=== PATIENT | male | born 1995 | race Caucasian/White ===

== ENCOUNTER 2017-11-30 06:50 | Emergency (ER) | payer BC ==
--- NOTE | 2017-11-30 07:22 | ED ---
Headache - HPI Summary HPI Summary: The pt is a 22 y/o male presenting to [facility] c/o a headache since yesterday. He notes nausea, one episode of emesis, palpitations and neck pain but denies photophobia, nasal congestion, fever, and cough. The throbbing HILL is rated 8/10 in severity is aggravated by walking and movement and alleviated by resting. The pt took Ibuprofen to no relief.The pt denies a hx of headaches. 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 Onset/Duration: Sudden Onset, Started days ago - 1 day, Still Present Currently Pain Is: Current Pain Scale(0-10)= - 8, Severe Timing: Constant Character: Throbbing Location of Headache: Diffuse Aggravating Factor: Exertion, Other - Walking Allevating Factors: Rest Associated Signs And Symptoms: Nausea, Vomiting, Neck Pain - Allergies/Home Medications Allergies/Adverse Reactions: Allergies Allergy/AdvReac Type Severity Reaction Status Date / Time No Known Allergies Allergy Verified 11/30/17 06:55 Home Medications: Home Medications NK [No Home Medications Reported] 11/30/17 [History Confirmed 11/30/17] PMH/Surg Hx/FS Hx/Imm Hx Previously Healthy: Yes Endocrine/Hematology History: Denies: Hx Diabetes Cardiovascular History: Denies: Hx Hypercholesterolemia, Hx Hypertension Respiratory History: Denies: Hx Asthma Sensory History: Denies: Hx Deafness - Cancer History Cancer Type, Location and Year: None reported - Surgical History Surgery Procedure, Year, and Place: None reported Infectious Disease History: No Infectious Disease History: Denies: Traveled Outside the [place] in Last 30 Days - Family History Known Family History: Positive: Hypertension - Father , Respiratory Disease - Asthma- father Negative: Diabetes - Social History Occupation: Student Lives: With Family Hx Substance Use: No Review of Systems Negative: Fever Negative: Photophobia ENT: Negative - Nasal congestion Positive: Other - Positive: Neck pain Negative: Cough Positive: Vomiting, Nausea Positive: Headache All Other Systems Reviewed And Are Negative: Yes Physical Exam - Summary Physical Exam Summary: Appearance: The patient is well-nourished in no acute distress and in no acute pain. Skin: The skin is warm and dry and skin color reflects adequate perfusion. HEENT: The head is normocephalic and atraumatic. The pupils are equal and reactive. The conjunctivae are clear and without drainage. Nares are patent and without drainage. Mouth reveals moist mucous membranes and the throat is without erythema and exudate. The external ears are intact. The ear canals are patent and without drainage. The tympanic membranes are intact. Neck: The neck is supple with full range of motion and non-tender. There are no carotid bruits. There is no neck vein distension. Respiratory: Chest is non-tender. Lungs are clear to auscultation and breath sounds are symmetrical and equal. Cardiovascular: Heart is regular rate and rhythm. There is no murmur or rub auscultated. There is no peripheral edema and pulses are symmetrical and equal. Abdomen: The abdomen is soft and non-tender. There are normal bowel sounds heard in all four quadrants and there is no organomegaly palpated. Musculoskeletal: There is no back tenderness noted. Extremities are non-tender with full range of motion. There is good capillary refill. There is no peripheral edema or calf tenderness elicited. Neurological: Patient is alert and oriented to person, place and time. The patient has symmetrical motor strength in all four extremities. Cranial nerves are grossly intact. Deep tendon reflexes are symmetrical and equal in all four extremities. Psychiatric: The patient has an appropriate affect and does not exhibit any anxiety or depression. Triage Information Reviewed: Yes Vital Signs On Initial Exam: Initial Vitals Temp Pulse Resp BP Pulse Ox 97.5 F 52 16 150/71 98 11/30/17 06:53 11/30/17 06:53 11/30/17 06:53 11/30/17 06:53 11/30/17 06:53 Vital Signs Reviewed: Yes Diagnostics - Vital Signs Vital Signs Temp Pulse Resp BP Pulse Ox 11/30/17 06:53 97.5 F 52 16 150/71 98 - Laboratory Result Diagrams: 11/30/17 07:40 11/30/17 07:40 Lab Statement: Any lab studies that have been ordered have been reviewed, and results considered in the medical decision making process. Headache Course/Dx - Course Course Of Treatment: Mr. Chávez presented to the emergency department with about a day of a global headache. He denies any photophobia but he does have some nausea. He's been working out lately and his neck is also a little sore on the left which she attributes to the working out. He is mildly tender in his neck and is nontoxic in appearance with normal vital signs. There is no meningeal sign. He had no leukocytosis, he was not febrile and he had a very slight CRP elevation. He was given a "migraine cocktail" of Reglan, Toradol, Benadryl and normal saline and felt much improved with his headache gone. I think this is a tension headache and recommended symptomatic treatment. - Diagnoses Provider Diagnoses: Tension headache Discharge - Sign-Out/Discharge Documenting (check all that apply): Patient Departure - DC - Discharge Plan Condition: Stable Disposition: HOME Patient Education Materials: Tension Headache (ED) Referrals: Cedric VALDOVINOS,Semaj Rodriguez [Primary Care Provider] - 2 Days Additional Instructions: Return to ED for any new or worsening symptoms - Billing Disposition and Condition Condition: STABLE Disposition: Home - Attestation Statements Document Initiated by Dariusibe: Yes Documenting Scribe: Marilee Stover Provider For Whom Scribe is Documenting (Include Credential): Dr. Kp Lee MD Scribe Attestation: Marilee Nunez scribed for Dr. Kp Lee MD on 11/30/17 at 1507. Scribe Documentation Reviewed: Yes Provider Attestation: The documentation as recorded by the Marilee randolph accurately reflects the service I personally performed and the decisions made by me, Dr. Kp Lee MD
[2017-11-30] MEDS ORDERED: diPHENhydraMINE PO* 50 MG PO ONE (07:23)
[2017-11-30] MEDS ORDERED: Ketorolac INJ* 30 MG/ML 1 ML VIAL IV PUSH ONE (07:23)
[2017-11-30] MEDS ORDERED: Metoclopramide IV* 5 MG/ML 2 ML VIAL IV ONE (07:23)
[2017-11-30] MEDS ORDERED: NS 0.9% 1000 ML* 1,000 ML IV ONE (07:23)
[2017-11-30 08:08] LABS: EGFR Non-African American 84.5 (>60)
[2017-11-30 08:09] LABS: ABS Basophils 0.1 10^3/ul (0-0.2); ABS Eosinophils 0.1 10^3/ul (0-0.6); ABS Lymphocytes 1.4 10^3/ul (1.0-4.8); ABS Neutrophils 6.7 10^3/ul (1.5-7.7); ABS Nucleated RBC 0 10^3/ul; Hematocrit 43 % (42-52); Hemoglobin 14.8 g/dl (14.0-18.0); Lymphocyte % 15.1 % (25-47); Mean Corpuscular HGB Conc 35 g/dl (31-36); Mean Corpuscular Hemoglobin 28 pg (27-31); Mean Corpuscular Volume 81 fL (80-94); Mean Platelet Volume 8.4 um3 (7.4-10.4); Nucleated Red Blood Cells % 0.2; Platelet Count 173 10^3/ul (150-450); Red Blood Count 5.34 10^6/ul (4.00-5.40); Red Cell Distribution Width 14 % (10.5-15); White Blood Count 9.3 10^3/ul (3.5-10.8)
[2017-11-30 09:27] VITALS: BP 130/60
== END 2017-11-30 09:26 | disposition home or self-care (01) ==
LOC: ED 06:50
DX: G44.209 Tension-type headache, unspecified, not intractable (principal); M54.2 Cervicalgia; R11.2 Nausea with vomiting, unspecified
CPT/HCPCS: 36415; 80053; 85025; 86140; 96374; 96375; 99282; A9270-GY; J1885; J2765